=== PATIENT | male | born 1980 | race African-American/Black ===

== ENCOUNTER 2022-01-23 19:39 | Emergency (ER) | payer MEDICAID ==
[~2022-01-23] VITALS: Ht 177.8 cm; Wt 63.0 kg
[2022-01-23] MEDS ORDERED: ONDANSETRON 4MG ODT PO ONE (20:15)
[2022-01-23] MEDS ORDERED: AZITHROMYCIN 500 MG TABLET PO ONE (20:15)
[2022-01-23] MEDS ORDERED: CEFTRIAXONE SODIUM 500 MG/VIAL IM ONE (20:15)
[2022-01-23 20:45] LABS: BASOPHILS % 0.4 % (0.0-2.0); HEMATOCRIT. 38.9 % (42.0-52.0); HEMOGLOBIN. 13.4 g/dL (14.0-18.0); LYMPHOCYTES % 15.8 % (20.0-50.0); MEAN CORPUSCULAR HEMOGLOBIN 31.4 pg (28.0-32.0); MEAN CORPUSCULAR VOLUME 91.3 fL (80.0-94.0); MEAN PLATELET VOLUME 8.1 fl (7.4-10.4); MONOCYTES % 4.6 % (2.0-8.0); NEUTROPHILS % 79.2 % (40.0-76.0); PLATELET 276 x1000/uL (130-400); RED BLOOD CELL COUNT 4.26 mill/uL (4.7-6.1); RED CELL DISTRIBUTION WIDTH 12.8 % (11.6-14.6)
[2022-01-23 20:50] LABS: CHLORIDE 102 mEq/L (98-107)
[2022-01-24 01:19] LABS: *AMPHETAMINES SCREEN URINE NEGATIVE (NEGATIVE); *BARBITURATES SCREEN URINE NEGATIVE (NEGATIVE); *BENZODIAZEPINES SCREEN URINE NEGATIVE (NEGATIVE); *COCAINE SCREEN URINE NEGATIVE (NEGATIVE); CANNABINOID URINE SCREEN PRESUMTIVE POSITIVE (NEGATIVE); METHADONE URINE SCREEN NEGATIVE (NEGATIVE); OPIATES URINE SCREEN NEGATIVE (NEGATIVE); PHENCYCLIDINE URINE SCREEN NEGATIVE (NEGATIVE)
[2022-01-24] MEDS ORDERED: AZITHROMYCIN 500 MG TABLET PO NR (01:45)
[2022-01-24] MEDS ORDERED: ONDANSETRON 4MG ODT PO NR (01:45)
[2022-01-24] MEDS ORDERED: CEFTRIAXONE SODIUM 500 MG/VIAL IM NR (01:45)
[2022-01-24 01:53] VITALS: BP 126/77
[2022-01-24 06:29] LABS: CLARITY URINE TURBID (CLEAR); COLOR URINE ORANGE (YELLOW); KETONES URINE 3+ (NEGATIVE); LEUKOCYTE ESTERASE URINE 3+ (NEGATIVE); NITRITE URINE POSITIVE (NEGATIVE); OCCULT BLOOD URINE 3+ (NEGATIVE); PH URINE 5.5 (4.5-8.0); PROTEIN URINE 2+ (NEGATIVE); SPECIFIC GRAVITY URINE 1.023 (1.005-1.030)
== END 2022-01-24 01:54 | disposition home or self-care (01) ==
LOC: ER 19:39
DX: R11.2 Nausea with vomiting, unspecified (principal); R10.13 Epigastric pain; F12.90 Cannabis use, unspecified, uncomplicated
CPT/HCPCS: 36415; 80053; 80305; 81003; 85025; 87077; 87086; 87186; 96372; 99283; J0696; Q0162